=== PATIENT | male | born 1950 | race Hispanic/Latino ===

== ENCOUNTER 2017-04-20 07:44 | Outpatient (CLI) | payer MEDICARE ==
--- NOTE | 2017-04-20 14:32 | NM ---
RADIONUCLIDE GASTRIC EMPTYING SCAN: HISTORY: A 66-year-old male with nausea. RADIOPHARMACEUTICAL: 2 mCi Technetium 99m-sulfur colloid administered orally in scrambled eggs. FINDINGS: There is 35% emptying of the ingested gastric contents at 1 hour, 48% emptying at 2 hours, 92% empty ing at 3 hours, and 98% emptying at 4 hours. The calculated gastric emptying half-time measures 123 minutes. IMPRESSION: Normal exam. POS: [facility]
== END 2017-04-20 07:45 | disposition home or self-care (01) ==
LOC: NM 07:44
PROVIDERS: ATTEND Internal Medicine Gastroenterology
DX: R11.0 Nausea (principal)
CPT/HCPCS: 78264; A9541

== ENCOUNTER 2017-11-10 10:10 | Outpatient (CLI) | payer MEDICARE ==
--- NOTE | 2017-11-10 11:10 | RAD ---
PA AND LATERAL CHEST: History: Dyspnea. Comparison: 03-29-17 FINDINGS: Heart size is within normal limits. There are some atherosclerotic changes of the aorta. The lungs ar e clear of infiltrates. There are arthritic changes of the spine. IMPRESSION: No active intrathoracic disease. POS: [facility]
== END 2017-11-10 10:11 | disposition home or self-care (01) ==
LOC: RAD 10:10
PROVIDERS: ATTEND Internal Medicine Pulmonary Disease
DX: R06.00 Dyspnea, unspecified (principal)
CPT/HCPCS: 71046

== ENCOUNTER 2018-04-26 10:48 | Outpatient (CLI) | payer MEDICARE ==
--- NOTE | 2018-04-26 12:10 | RAD ---
RADIOGRAPH CHEST 2 VIEWS: HISTORY: 67-year-old male with dyspnea. FINDINGS: There is no air space density, pulmonary edema, pleural effusion, pneumothorax, or cardiomegaly. IMPRESSION: No acute cardiopulmonary findings. richard POS: [facility]
== END 2018-04-26 10:49 | disposition home or self-care (01) ==
LOC: RAD 10:48
PROVIDERS: ATTEND Internal Medicine Pulmonary Disease
DX: R06.00 Dyspnea, unspecified (principal)
CPT/HCPCS: 71046

== ENCOUNTER 2018-11-23 10:27 | Outpatient (CLI) | payer MEDICARE ==
--- NOTE | 2018-11-23 10:39 | RAD ---
EXAM: Chest Two Views 11/23/2018 10:36 AM HISTORY: Dyspnea COMPARISON: April 26, 2018 FINDINGS: Heart: Normal in size and contour. Pulmonary vessels: Normal. Costophrenic angles: Clear. Lungs: No confluent pneumonia, overt edema, pleural effusion, or other acute process. Pneumothorax: None. Osseous structures:No acute fracture or subluxation demonstrated. There is scattered degenerative and osteoarthritic change present. Additional findings: None. IMPRESSION: No significant acute intrathoracic disease.
== END 2018-11-23 10:28 | disposition home or self-care (01) ==
LOC: RAD 10:27
PROVIDERS: ATTEND Internal Medicine Pulmonary Disease
DX: R06.00 Dyspnea, unspecified (principal)
CPT/HCPCS: 71046

== ENCOUNTER 2019-03-11 07:38 | Outpatient (CLI) | payer MEDICARE ==
--- NOTE | 2019-03-11 10:39 | MRI ---
CERVICAL SPINE MRI WITHOUT CONTRAST: HISTORY: Cervical spondylosis with myelopathy. COMPARISON: None. FINDINGS: Appropriate T1 marrow signal intensity of the cervical vertebrae. Cervical spine vertebral body heig ht is maintained. No fracture. No significant STIR hyperintensity to suggest vertebral body edema o r ligamentous injury. Visualized brain parenchyma, cervicomedullary junction, cervical cord, and the upper thoracic cord have a normal size and signal intensity. 2.5 mm of anterolisthesis of C4 upon C5, 1.8 mm of anterolisthesis of C5 upon C6, 3.9 mm of retrolist hesis of C6 upon C7. C2-C3: No significant central canal stenosis. Foramen are patent. C3-C4: No significant central canal stenosis. Mild right foraminal narrowing due to uncovertebral a nd facet hypertrophy. Left neural foramen is patent. C4-C5: Central disk protrusion abuts the thecal sac. Subarachnoid space is maintained. Disk materi al abuts the ventral cord, without significant cord displacement. No cord hyperintensity. Mild cent ral canal stenosis. Bilaterally, neural foramen are patent. There is bilateral facet hypertrophy. C5-C6: Moderate to severe loss of disk space height. Broad-based disk bulge abuts the thecal sac. Ventral subarachnoid space is nearly effaced. There is minimal flattening of the ventral cord, witho ut cord hyperintensity. Mild central canal stenosis. Minimal right and mild left foraminal narrowin g predominantly due to uncovertebral hypertrophy. C6-C7: There is a broad-based disk-osteophyte complex with a central disk protrusion. This material does make contact with the ventral cervical cord, without significant cord deformity. No cord signa l hyperintensity. Mild central canal stenosis. Moderate to severe right and severe left foraminal n arrowing due to uncovertebral hypertrophy and spondylolisthesis. C7-T1: No significant central canal stenosis or foraminal narrowing. IMPRESSION: 1. Degenerative change of the cervical spine as detailed above. There is no evidence of high-grade central canal stenosis. 2. Moderate to severe right and severe left foraminal narrowing at C6-C7. 3. Spondylolisthesis as described above. POS: [facility]
--- NOTE | 2019-03-11 10:57 | MRI ---
MRI LUMBAR SPINE WITHOUT CONTRAST: Indications: Lumbar stenosis, neurogenic claudication, low back pain. Comparison: 09-25-11 FINDINGS: Lumbar vertebrae maintain height and alignment. There are degenerative disc signal changes at L3-4 an d L4-5 although disc spaces are preserved. Superior endplate deformity involving both L4 and L5 verte bra are present. The superior endplate at L5 is a new finding. The deformity at L4 was present in 201 2 and does result in superior endplate depression anteriorly, which is stable in appearance. No significant vertebral body edema. L1-2: No disc bulge or protrusion. No central canal or foraminal stenosis. L2-3: Minimal disc bulge. Mild facet arthrosis. No central canal or foraminal stenosis. L3-4: There is annular tear of fissure with diffuse disc bulge/protrusion which has progressed since prior study. This flattens the thecal sac. There is mild facet and ligamentous hypertrophy and some p osterior epidural fat which results in mild central canal stenosis. No significant foraminal stenosis . L4-5: Small central disc protrusion with broad based disc bulge. Facet and ligamentous hypertrophy is prominent. These changes result in moderate central canal stenosis which has progressed since the pr ior exam. The diffuse disc bulge encroaches into the left foramina and may contact the exiting left L 5 nerve root. L5-S1: Mild disc bulge. The thecal sac is congenitially small. Facet hypertrophy, however, no signifi cant central canal or foraminal stenosis. IMPRESSION: Central canal stenosis at L3-4 and L4-5 has progressed at both of these levels when compared to 2012 as described above. POS: [facility]
== END 2019-03-11 07:39 | disposition home or self-care (01) ==
LOC: TBSIIMAG 07:38
PROVIDERS: ATTEND Neurological Surgery
DX: M47.12 Other spondylosis with myelopathy, cervical region (principal); M48.061 Spinal stenosis, lumbar region without neurogenic claudication; M48.02 Spinal stenosis, cervical region; M43.12 Spondylolisthesis, cervical region
CPT/HCPCS: 72141; 72148

== ENCOUNTER 2019-04-01 08:29 | Emergency (ER) | payer MEDICARE ==
[2019-04-01 09:31] LABS: #Basophils 0.1 thou/uL (0.0-0.2); #Eosinphils 0.2 thou/uL (0.0-0.7); #Lymphocytes 1.6 thou/uL (1.20-3.40); #Monocytes 0.6 thou/uL (0.11-0.59); #Neutrophils 4.2 thou/uL (1.40-6.50); %Basophils 0.8 % (0.0-1.0); %Lymphocytes 24.5 % (21.0-51.0); %Monocytes 8.5 % (0.0-10.0); %Neutrophils 63.2 % (42.0-75.0); Hemoglobin 16.2 g/dL (14.0-18.0); Mean Corpuscular HGB CONC 33.1 g/dL (32.0-36.0); Mean Corpuscular Hemoglobin 29.7 pg (27.0-31.0); Mean Corpuscular Volume 89.7 fL (78.0-98.0); Platelet Count 206 thou/uL (130-400); RBC Distribution Width 13.1 % (11.5-14.5); Red Blood Cell (RBC) Count 5.45 mill/uL (4.70-6.10); White Blood Cell (WBC) Count 6.7 thou/uL (4.8-10.8)
[2019-04-01 09:51] LABS: ALT (SGPT) 19 U/L (8-55); AST (SGOT) 15 U/L (5-34); Albumin 4.4 g/dL (3.4-4.8); Alkaline Phosphatase 82 U/L (40-150); Anion Gap 11 mmol/L (10-20); BUN (Urea Nitrogen) 17 mg/dL (8.4-25.7); Bilirubin, Total 0.9 mg/dL (0.2-1.2); Calc. Creatinine Clearance 0 mL/min (70-130); Calcium 9.5 mg/dL (7.8-10.44); Carbon Dioxide 22 mmol/L (23-31); Chloride 108 mmol/L (98-107); Estimated GFR-MDRD 64; Globulin 2.6 g/dL (2.4-3.5); Glucose 271 mg/dL (80-115); Potassium 3.9 mmol/L (3.5-5.1); Sodium 137 mmol/L (136-145)
== END 2019-04-01 11:50 | disposition home or self-care (01) ==
LOC: ERS 08:29
DX: K64.8 Other hemorrhoids (principal); E11.9 Type 2 diabetes mellitus without complications; E03.9 Hypothyroidism, unspecified; E78.5 Hyperlipidemia, unspecified; G47.00 Insomnia, unspecified; F41.9 Anxiety disorder, unspecified; F32.9 Major depressive disorder, single episode, unspecified
CPT/HCPCS: 36415; 80053; 82274; 85025; 86850; 86900; 86901; 99283

== ENCOUNTER 2023-05-26 08:35 | Outpatient (CLI) | payer MEDICARE | END 2023-05-26 08:36 | disposition home or self-care (01) | LOC: NM 08:35 | PROVIDERS: ATTEND Psychiatry & Neurology Neurology | DX: R25.1 Tremor, unspecified (principal); M62.89 Other specified disorders of muscle | CPT/HCPCS: 78803; A9584 ×2 ==

== ENCOUNTER 2023-12-06 21:30 | Observation (INO) | payer MEDICARE ==
[2023-12-06 21:56] LABS: #Basophils 0.07 10x3/uL (0.0-0.2); %Basophils 1.1 % (0.0-1.0); %Eosinophils 6.2 % (0.0-10.0); %Lymphocytes 29.6 % (21.0-51.0); %Monocytes 11.3 % (0.0-10.0); %Neutrophils 51.5 % (42.0-75.0); Hematocrit 42.7 % (42.0-52.0); Hemoglobin 14.7 g/dL (14.0-18.0); Mean Corpuscular HGB CONC 34.4 g/dL (32.0-36.0); Mean Corpuscular Hemoglobin 29.6 pg (27.0-31.0); Mean Corpuscular Volume 86.1 fL (78.0-98.0); Mean Platelet Volume 8.8 fL (7.4-10.4); Platelet Count 177 10x3/uL (130-400); RBC Distribution Width 14.2 % (11.5-14.5); Red Blood Cell (RBC) Count 4.96 mill/uL (4.70-6.10)
[2023-12-06 22:16] LABS: Troponin I Less than 0.010 ng/mL (< 0.028)
[2023-12-06] MEDS ORDERED: Aspirin Chewable 81 MG TAB ONE (22:30)
[2023-12-06] MEDS ORDERED: Nitroglycerin 2% Ointment 1 INCH/1 GM Packet ONE (22:30)
[2023-12-06 23:18] LABS: ALT (SGPT) 34 U/L (8-55); AST (SGOT) 34 U/L (5-34); Albumin 3.8 g/dL (3.4-4.8); Alkaline Phosphatase 87 U/L (40-110); Anion Gap 14 mmol/L (10-20); BUN (Urea Nitrogen) 29 mg/dL (8.4-25.7); Bilirubin, Total 0.9 mg/dL (0.2-1.2); Calc. Creatinine Clearance 0 mL/min (70-130); Carbon Dioxide 25 mmol/L (23-31); Chloride 108 mmol/L (98-107); Estimated GFR 59; Globulin 2.7 g/dL (2.4-3.5); Glucose 127 mg/dL (83-110); Potassium 5.1 mmol/L (3.5-5.1); Protein, Total 6.5 g/dL (5.8-8.1); Sodium 142 mmol/L (136-145)
[2023-12-07] MEDS ORDERED: Dextrose 50% Abboject 50 ML SYRINGE SLOW IVP PRN (01:20)
[2023-12-07] MEDS ORDERED: Nitroglycerin 0.4 MG TAB (25 Tab Bottle) SL PRN (01:20)
[2023-12-07] MEDS ORDERED: Glucagon 1 MG/ML KIT IM PRN (01:20)
[2023-12-07] MEDS ORDERED: Dextrose 5% in Water 1,000 ML IV PRN (01:20)
[2023-12-07] MEDS ORDERED: Ipratropium/Albuterol 3 ML NEB NEB PRN (01:32)
[2023-12-07 02:20] LABS: Troponin I Less than 0.010 ng/mL (< 0.028)
[2023-12-07] MEDS ORDERED: ALPRAZolam 0.5 MG TAB PO SCH (02:45)
[2023-12-07] MEDS: Amitriptyline HCl 10 MG TAB PO SCH (03:48)
[2023-12-07] MEDS: Lorazepam 0.5 MG TAB PO SCH (04:08)
[2023-12-07] MEDS ORDERED: Levothyroxine Sodium 125 MCG TAB PO SCH (06:00)
[2023-12-07 06:07] LABS: Hemoglobin A1c 7.1 % (4.0-6.0)
[2023-12-07 06:11] LABS: Cardiac Risk 2.2 (Less than 4.5)
[2023-12-07 06:12] LABS: Troponin I Less than 0.010 ng/mL (< 0.028)
[2023-12-07] MEDS: Nitroglycerin 2% Ointment 1 INCH/1 GM Packet TOP SCH (06:30)
[2023-12-07] MEDS: Levothyroxine Sodium 112 MCG TAB PO SCH (06:31)
[2023-12-07] MEDS: Aspirin Chewable 81 MG TAB PO SCH (09:28)
[2023-12-07] MEDS ORDERED: ADENOSINE 60 MG/20 ML SDV ONE (11:13)
[2023-12-07] MEDS ORDERED: Cyclobenzaprine 10 MG TAB PO PRN (15:51)
[2023-12-07] MEDS ORDERED: Losartan 25 MG TAB PO SCH (16:00)
[2023-12-07 16:02] VITALS: BP 135/63; TEMP 97.9
[2023-12-07] MEDS ORDERED: tiZANidine HCl 4 MG TAB PO PRN (16:28)
[2023-12-07] MEDS ORDERED: Carbidopa/Levodopa 25-100 mg Tablet PO PRN (16:39)
[2023-12-07] MEDS ORDERED: CICLOPIROX 0.77% TOP PRN (16:46)
[2023-12-07] MEDS ORDERED: Atorvastatin Calcium 10 MG TAB PO SCH (21:00)
[2023-12-07] MEDS ORDERED: TACROLIMUS 0.1% TOP SCH (21:00)
[2023-12-07] MEDS ORDERED: Lorazepam 1 MG TAB PO SCH (21:00)
[2023-12-07] MEDS ORDERED: Triamcinolone 0.1% Cream 15 GM TUBE TOP SCH (21:00)
[2023-12-07] MEDS ORDERED: Primidone 50 MG TAB PO SCH (21:00)
[2023-12-07] MEDS ORDERED: CICLOPIROX 8% TOP SCH (21:00)
[2023-12-07] MEDS ORDERED: Amitriptyline HCl 10 MG TAB PO SCH (21:00)
[2023-12-08] MEDS ORDERED: Levothyroxine Sodium 112 MCG TAB PO SCH (06:00)
[2023-12-08] MEDS ORDERED: Losartan 25 MG TAB PO SCH (09:00)
[2023-12-08] MEDS ORDERED: Ezetimibe 10 MG TAB PO SCH (09:00)
[2023-12-08] MEDS ORDERED: Sertraline 100 MG TAB PO SCH (09:00)
[2023-12-08] MEDS ORDERED: Mirabegron ER 25 MG ER.TAB PO SCH (09:00)
[2023-12-08] MEDS ORDERED: Insulin Glargine 30 UNITS/0.3 ML VIAL SC SCH (09:00)
[2023-12-08] MEDS ORDERED: Rosuvastatin 20 MG TAB PO SCH (09:00)
[2023-12-08] MEDS ORDERED: Multivit, Therapeutic 1 TAB PO SCH (09:00)
== END 2023-12-07 16:50 | disposition home or self-care (01) ==
LOC: ERS 21:30 → 2NO 12-07 01:14
PROVIDERS: ADMIT Student in an Organized Health Care Education/Training Program; ATTEND Internal Medicine
DX: R07.9 Chest pain, unspecified (principal); I16.0 Hypertensive urgency; I10 Essential (primary) hypertension; E78.5 Hyperlipidemia, unspecified; E11.9 Type 2 diabetes mellitus without complications; N40.0 Benign prostatic hyperplasia without lower urinary tract symptoms; F41.9 Anxiety disorder, unspecified; G47.33 Obstructive sleep apnea (adult) (pediatric); E03.9 Hypothyroidism, unspecified; R06.00 Dyspnea, unspecified; Z79.890 Hormone replacement therapy; Z79.899 Other long term (current) drug therapy; Z79.4 Long term (current) use of insulin; Z79.82 Long term (current) use of aspirin; Z90.89 Acquired absence of other organs
CPT/HCPCS: 71045; 78452; 80053; 80061; 82962; 83036; 83690; 83735; 83880; 84443; 84484 ×3; 85025; 85379; 93005; 93017; A9502; 36415; 36416; J0153

== ENCOUNTER 2024-06-02 09:10 | Outpatient (CLI) | payer MEDICARE | END 2024-06-02 09:11 | disposition home or self-care (01) | LOC: BICMAMMO 09:10 | PROVIDERS: ATTEND Family Medicine | DX: N25.81 Secondary hyperparathyroidism of renal origin (principal); M81.0 Age-related osteoporosis without current pathological fracture | CPT/HCPCS: 77080 ==

== ENCOUNTER 2025-03-24 10:18 | Emergency (ER) | payer MEDICARE ==
[2025-03-24] MEDS ORDERED: Boostrix 0.5 ML (Tdap) VIAL (>/=7 yrs of age) ONE (10:39)
[2025-03-24] MEDS ORDERED: Acetaminophen 500 MG TAB ONE (10:50)
[2025-03-24] MEDS ORDERED: Bacitracin 1 PK ONE (11:23)
== END 2025-03-24 13:50 | disposition home or self-care (01) ==
LOC: ERS 10:18
DX: S09.90XA Unspecified injury of head, initial encounter (principal); S80.211A Abrasion, right knee, initial encounter; I12.0 Hypertensive chronic kidney disease with stage 5 chronic kidney disease or end stage renal disease; N18.6 End stage renal disease; E11.9 Type 2 diabetes mellitus without complications; W19.XXXA Unspecified fall, initial encounter; W22.8XXA Striking against or struck by other objects, initial encounter; Y93.01 Activity, walking, marching and hiking
CPT/HCPCS: 70450; 90471; 90715